=== PATIENT | female | born 1985 | race Caucasian/White ===

== ENCOUNTER → 2017-06-21 | Outpatient (REF) | payer BC ==
[~2017-06-21] MED LIST: COLA100C5 PO; MOTR200T44 PO; PRENTAB55 PO; TYLE167L PO
== END ==
LOC: M LAB REF 17:41
PROVIDERS: ATTEND Advanced Practice Midwife
DX: Z12.4 Encounter for screening for malignant neoplasm of cervix (principal)

== ENCOUNTER → 2017-10-10 | Outpatient (REF) | payer BC ==
[2017-10-10 17:17] LABS: INFLUENZA A AMPLIFICATION NEGATIVE (NEGATIVE); INFLUENZA B AMPLIFICATION NEGATIVE (NEGATIVE); RSV AMPLIFICATION NEGATIVE (NEGATIVE)
== END ==
LOC: M LAB REF 16:36
DX: J11.1 Influenza due to unidentified influenza virus with other respiratory manifestations (principal)
CPT/HCPCS: 87631

== ENCOUNTER → 2018-08-11 | Outpatient (CLI) | payer BC ==
[2018-08-11 12:28] LABS: ALBUMIN 3.9 GM/DL (3.2-5.2); ALBUMIN/GLOBULIN RATIO 1.34 (1.00-1.93); ALKALINE PHOSPHATASE 70 U/L (45-117); ALT/SGPT 18 U/L (12-78); ANION GAP 6 MEQ/L (8-16); AST/SGOT 8 U/L (7-37); BILIRUBIN,TOTAL 0.7 MG/DL (0.2-1.0); BLOOD UREA NITROGEN 12 MG/DL (7-18); CALCIUM LEVEL 8.8 MG/DL (8.5-10.1); CARBON DIOXIDE LEVEL 26 MEQ/L (21-32); CHLORIDE LEVEL 109 MEQ/L (98-107); CHOLESTEROL LEVEL 155 MG/DL (<200); CHOLESTEROL RISK RATIO 3.297 (<5); CREATININE FOR GFR 0.81 MG/DL (0.55-1.30); FREE T4 0.81 NG/DL (0.76-1.46); GLOMERULAR FILTRATION RATE > 60.0 (>60); GLUCOSE, FASTING 92 MG/DL (70-100); HDL CHOLESTEROL 47 MG/DL (>40); LDL CHOLESTEROL 99 MG/DL (<100); NON-HDL-C 108 MG/DL; POTASSIUM SERUM 4.7 MEQ/L (3.5-5.1); SODIUM LEVEL 141 MEQ/L (136-145); TOTAL PROTEIN 6.8 GM/DL (6.4-8.2); TRIGLYCERIDES LEVEL 46 MG/DL (<150)
== END ==
LOC: M WUC 08:44
DX: F41.9 Anxiety disorder, unspecified (principal); Z13.220 Encounter for screening for lipoid disorders
CPT/HCPCS: 84443

== ENCOUNTER → 2018-09-27 | Day surgery (SDC) | payer BC ==
[~2018-09-27] VITALS: Ht 165.1 cm; Wt 84.8 kg
[~2018-09-27] MED LIST changes: +DOXY-350 PO; +LIDOCAINE 2% INJ 100 MG/5 ML SDV (FOR ANES.) As Ordered ONE; +NS 1,000 ML IV ONE; +PROPOFOL 200 MG/20 ML VIAL As Ordered ONE; +SPIR50TA4 PO; +TYLE500T78 PO
--- NOTE | 2018-09-27 09:11 | ROOR ---
Patient Name: Mirella Sykes Procedure Date: 09/27/2018 8:50 AM Date of : 1985 Age: 33 Room: [facility] Gender: Female Note Status: Finalized Procedure: Colonoscopy Indications: Colon cancer screening in patient at increased risk: Family history of 1st-degree relative with colon polyps before age 60 years, Colon cancer screening in patient at increased risk: Family history of colorectal cancer in multiple 2nd degree relatives Providers: Ari Henderson Jr, MD Referring MD: Kady ZENG DO [employer]yuridia Provider: Medicines: Propofol per Anesthesia Complications: No immediate complications. Procedure: Pre-Anesthesia Assessment: - Prior to the procedure, a History and Physical was performed, and patient medications and allergies were reviewed. The patient is competent. The risks and benefits of the procedure and the sedation options and risks were discussed with the patient. All questions were answered and informed consent was obtained. Patient identification and proposed procedure were verified by the physician and the nurse in the pre-procedure area and in the procedure room. Mental Status Examination: alert and oriented. Airway Examination: normal oropharyngeal airway and neck mobility. Respiratory Examination: clear to auscultation. CV Examination: normal. ASA Grade Assessment: I - A normal, healthy patient. After reviewing the risks and benefits, the patient was deemed in satisfactory condition to undergo the procedure. The anesthesia plan was to use moderate sedation / analgesia (conscious sedation). Immediately prior to administration of medications, the patient was re-assessed for adequacy to receive sedatives. The heart rate, respiratory rate, oxygen saturations, blood pressure, adequacy of pulmonary ventilation, and response to care were monitored throughout the procedure. The physical status of the patient was re-assessed after the procedure. The Colonoscope was introduced through the anus and advanced to the cecum, identified by appendiceal orifice and ileocecal valve. The colonoscopy was performed without difficulty. The patient tolerated the procedure well. The quality of the bowel preparation was adequate. Findings: The rectum, recto-sigmoid colon, sigmoid colon, descending colon, transverse colon, ascending colon, cecum, appendiceal orifice and ileocecal valve appeared normal. Impression: - The rectum, recto-sigmoid colon, sigmoid colon, descending colon, transverse colon, ascending colon, cecum, appendiceal orifice and ileocecal valve are normal. - No specimens collected. Recommendation: - Discharge patient to home (ambulatory). - Repeat colonoscopy in 5 years for screening purposes. Ari Henderson MD Ari Henderson Jr, MD 09/27/2018 9:10:40 AM This report has been signed electronically. Number of Addenda: 0 Note Initiated On: 09/27/2018 8:50 AM Estimated Blood Loss: Estimated blood loss: none.
[2018-09-27 09:30] VITALS: BP 125/79
== END | disposition home or self-care (01) ==
LOC: M OPP 08:06
PROVIDERS: ATTEND Surgery
DX: Z83.71 Family history of colonic polyps (principal); Z80.0 Family history of malignant neoplasm of digestive organs; R12 Heartburn; Z79.899 Other long term (current) drug therapy; Z88.1 Allergy status to other antibiotic agents

== ENCOUNTER → 2018-10-01 | Outpatient (CLI) | payer BC ==
[~2018-10-01] MED LIST changes: -LIDOCAINE 2% INJ 100 MG/5 ML SDV (FOR ANES.) As Ordered ONE; -NS 1,000 ML IV ONE; -PROPOFOL 200 MG/20 ML VIAL As Ordered ONE
--- NOTE | 2018-10-01 10:03 | REP ---
Clinical: Pelvic and perineal pain . Technique: Transabdominal pelvic ultrasound followed by transvaginal examination for better evaluation of the endometrium and adnexa with color Doppler evaluation of the ovaries. Findings: Bladder is unremarkable and measures approximately 10.2 x 5.7 x 7.9 cm . Normal anteverted uterus measures 8.6 x 3.6 x 5.3 cm . The endometrial complex measures 5.1 mm thickness. No discrete uterine or endometrial abnormalities are appreciated. Bilateral ovaries are normal in appearance and vascularity without evidence for torsion. Right ovary measures 3.2 x 2.3 x 3.6 cm with complex cystic lesion measuring 1.9 cm maximal diameter ; R I = 0.49 . Left ovary measures 2.5 x 2.0 x 2.6 cm ; R I = 0.55 . No pelvic fluid or adnexal mass lesion . Impression: 1. Normal appearance to the uterus and left ovary. 2. No evidence for ovarian torsion. 3. Complex cystic lesion in the right ovary likely regressing physiologic cyst. Consider reevaluation in 4-6 weeks to evaluate for resolution. Electronically Signed by Carlos Hamilton MD 10/01/2018 09:55 A
== END ==
LOC: M RAD 09:10
PROVIDERS: ATTEND Advanced Practice Midwife
DX: R10.2 Pelvic and perineal pain (principal); N83.201 Unspecified ovarian cyst, right side

== ENCOUNTER → 2019-01-14 | Outpatient (CLI) | payer BC ==
--- NOTE | 2019-01-15 03:58 | REP ---
Clinical: Right ovarian cyst. Comparison: 10/01/2018 . Technique: Transabdominal pelvic ultrasound followed by transvaginal examination for better evaluation of the endometrium and adnexa with color Doppler evaluation of the ovaries. Findings: Bladder is unremarkable and measures 14.8 x 9.8 x 6.3 cm Normal anteverted uterus measures 8.3 x 3.3 x 4.9 cm . The endometrial complex measures 2.7 mm thickness. No discrete uterine or endometrial abnormalities are appreciated. Bilateral ovaries are normal in appearance and vascularity without evidence for torsion. Right ovary measures 3.4 x 2.1 x 2.1 cm ; R I = 0.70 . Left ovary measures 3.7 x 2.0 x 2.5 cm ; R I = 0.65 . No pelvic fluid or adnexal mass lesion. Previous right ovarian cyst resolved. Impression: 1. Normal pelvic ultrasound. Electronically Signed by Carlos Hamilton MD 01/15/2019 03:50 A
== END ==
LOC: M RAD 14:04
PROVIDERS: ATTEND Advanced Practice Midwife
DX: Z87.42 Personal history of other diseases of the female genital tract (principal)

== ENCOUNTER → 2019-08-08 | Outpatient (CLI) | payer BC ==
[2019-08-08 10:27] LABS: BASO % 0.5 % (0.0-1.0); EOS # 0.1 10^3/uL (0.0-0.5); EOS % 1.4 % (0.0-3.0); HEMATOCRIT 44.3 % (36.0-47.0); HEMOGLOBIN 14.7 g/dl (12.0-15.5); LYMPH # 1.6 10^3/uL (1.5-5.0); LYMPH % 19.4 % (24.0-44.0); MEAN CORPUSCULAR HEMOGLOBIN 30.6 pg (27.0-33.0); MEAN CORPUSCULAR HGB CONC 33.2 g/dl (32.0-36.5); MEAN CORPUSCULAR VOLUME 92.3 fl (80.0-96.0); MONO # 0.6 10^3/uL (0.0-0.8); NEUTROPHILS % 71.2 % (36.0-66.0); PLATELET COUNT, AUTOMATED 275 10^3/uL (150-450); WHITE BLOOD COUNT 8.5 10^3/uL (4.0-10.0)
[2019-08-08 11:00] LABS: ALBUMIN 3.6 GM/DL (3.2-5.2); ALT/SGPT 25 U/L (12-78); AMYLASE 28 U/L (25-115); BILIRUBIN,TOTAL 0.8 MG/DL (0.2-1.0); BLOOD UREA NITROGEN 12 MG/DL (7-18); CALCIUM LEVEL 8.9 MG/DL (8.5-10.1); CARBON DIOXIDE LEVEL 28 MEQ/L (21-32); CHLORIDE LEVEL 108 MEQ/L (98-107); CREATININE FOR GFR 0.75 MG/DL (0.55-1.30); GLOMERULAR FILTRATION RATE > 60.0 (>60); GLUCOSE, FASTING 85 MG/DL (70-100); LIPASE 110 U/L (73-393); POTASSIUM SERUM 4.3 MEQ/L (3.5-5.1); SODIUM LEVEL 142 MEQ/L (136-145); TOTAL PROTEIN 6.8 GM/DL (6.4-8.2)
[2019-08-09 14:57] LABS: TISSUE TRANSGLUTAMINASE IgA <2 U/mL (0-3); TISSUE TRANSGLUTAMINASE IgG <2 U/mL (0-5); UNITSIGA FOR GLIADIN IGA 4 units (0-19); UNITSIGG FOR GLIADIN IGG 3 units (0-19)
== END ==
LOC: M WUC 08:26
PROVIDERS: ATTEND Family Medicine
DX: R10.11 Right upper quadrant pain (principal)

== ENCOUNTER → 2019-10-11 | Outpatient (CLI) | payer BC ==
--- NOTE | 2019-10-11 10:13 | REP ---
Hepatobiliary scan and gallbladder ejection fraction: History: Right upper quadrant pain pressure and tenderness. Technique: 6.6 mCi of technetium-99m mebrofenin was injected and sequential anterior images are acquired. 65 minutes after the mebrofenin injection, the patient consumed 8 ounces Ensure and an additional 60 minutes of imaging was acquired. Regions of interest are plotted around the gallbladder. Findings: The initial hepatocellular parenchymal uptake phase is normal and homogeneous. Intra- and extra-hepatic bile ducts are labeled by the 10 -minute image. The gallbladder is first labeled on the 10 -minute image. There is normal washout from the liver parenchyma into the gallbladder and small intestine on subsequent images. The gallbladder ejection fraction is 55 %. Values greater than 35 % are considered normal with this technique. Impression: Normal hepatobiliary scan and normal gallbladder ejection fraction. Electronically Signed by Hussain Jarvis MD 10/11/2019 10:05 A
== END ==
LOC: M RAD 07:33
PROVIDERS: ATTEND Family Medicine
DX: R10.11 Right upper quadrant pain (principal)
CPT/HCPCS: 78227; A9537; J2805

== ENCOUNTER → 2019-10-24 | Outpatient (CLI) | payer BC ==
[~2019-10-24] MED LIST changes: +GASTROGRAFIN SOLUTION 30ML (Q9963) As Ordered ONE; +ISOVUE-370 76% 100ML VIAL (Q9967) As Ordered ONE
--- NOTE | 2019-10-24 15:11 | REP ---
Clinical: Right upper quadrant pain. Technique: Axial contrast enhanced images from the lung bases to the pubic symphysis using oral (per protocol) and 100 ml Isovue 370 intravenous contrast material with coronal and sagittal re-formations. Findings: Lung bases are clear. Visualized heart and pericardium normal. Liver, spleen, pancreas, gallbladder, bilateral adrenal glands and kidneys are normal. The enteric system is without obstruction or acute inflammatory process. Normal terminal ileum and appendix are identified in the right lower quadrant. Pelvis demonstrates normal bladder and age-appropriate uterus/adnexa. No pelvic fluid or ascites. No free air. No adenopathy. Abdominal aorta without aneurysm or dissection. Musculoskeletal structures are intact. Impression: 1. No acute abdominopelvic pathology appreciated. 2. No ascites, adenopathy, or focal inflammatory stranding. No free air. Electronically Signed by Carlos Hamilton MD 10/24/2019 03:02 P
== END ==
LOC: M RAD 12:53
PROVIDERS: ATTEND Family Medicine
DX: R10.11 Right upper quadrant pain (principal); K82.4 Cholesterolosis of gallbladder
CPT/HCPCS: 74177; Q9963; Q9967

== ENCOUNTER → 2020-01-15 | Outpatient (CLI) | payer BC ==
[~2020-01-15] MED LIST changes: -GASTROGRAFIN SOLUTION 30ML (Q9963) As Ordered ONE; -ISOVUE-370 76% 100ML VIAL (Q9967) As Ordered ONE
[2020-01-15 10:40] LABS: BASO % 0.5 % (0.0-1.0); EOS # 0.1 10^3/uL (0.0-0.5); EOS % 1.4 % (0.0-3.0); HEMATOCRIT 43.7 % (36.0-47.0); HEMOGLOBIN 14.7 g/dl (12.0-15.5); LYMPH # 1.8 10^3/uL (1.5-5.0); LYMPH % 27.5 % (24.0-44.0); MEAN CORPUSCULAR HEMOGLOBIN 30.5 pg (27.0-33.0); MEAN CORPUSCULAR HGB CONC 33.6 g/dl (32.0-36.5); MEAN CORPUSCULAR VOLUME 90.7 fl (80.0-96.0); MONO # 0.5 10^3/uL (0.0-0.8); MONO % 8.3 % (0.0-5.0); NEUTROPHILS % 62.1 % (36.0-66.0); PLATELET COUNT, AUTOMATED 305 10^3/uL (150-450); RED BLOOD COUNT 4.82 10^6/uL (4.00-5.40); WHITE BLOOD COUNT 6.4 10^3/uL (4.0-10.0)
[2020-01-15 11:13] LABS: ALBUMIN 4.1 GM/DL (3.2-5.2); ALT/SGPT 25 U/L (12-78); BILIRUBIN,DIRECT 0.2 MG/DL (0.0-0.2); BILIRUBIN,TOTAL 0.8 MG/DL (0.2-1.0); TOTAL PROTEIN 7.3 GM/DL (6.4-8.2)
[2020-01-15 11:27] LABS: H PYLORI QUALITATIVE IgG NEGATIVE (NEGATIVE)
[2020-01-18 00:07] LABS: IGASUB3 19.3 mg/dL (13.4-97.9); IgA SERUM (part of Subclasses) 182 mg/dL (87-352); TISSUE TRANSGLUTAMINASE IgA <2 U/mL (0-3)
[2020-01-24 08:06] LABS: FATS NEUTRAL Normal (.); FATS TOTAL Normal (.); H PYLORI STOOL ANTIGEN Negative (Negative); PANCREATIC ELASTASE STOOL >500 (>200)
== END ==
LOC: M LAB 09:48
PROVIDERS: ATTEND Internal Medicine Gastroenterology
DX: R10.11 Right upper quadrant pain (principal)

== ENCOUNTER → 2020-02-15 | Outpatient (CLI) | payer BC ==
[2020-02-15 18:10] LABS: CHOLESTEROL RISK RATIO 3.65 (<5)
== END ==
LOC: M WUC 09:57
PROVIDERS: ATTEND Nurse Practitioner Family
DX: Z51.81 Encounter for therapeutic drug level monitoring (principal); Z79.899 Other long term (current) drug therapy; L70.0 Acne vulgaris

== ENCOUNTER → 2020-03-22 | Outpatient (CLI) | payer BC ==
[~2020-03-22] MED LIST changes: +FAMO20TA PO; +MULTCAP PO; +[UNRECOGNIZED DRUG - OTHER]
[2020-03-22 17:36] LABS: BASO % 0.6 % (0.0-1.0); EOS # 0.1 10^3/uL (0.0-0.5); HEMATOCRIT 47.2 % (36.0-47.0); HEMOGLOBIN 15.4 g/dl (12.0-15.5); LYMPH # 1.8 10^3/uL (1.5-5.0); LYMPH % 26.9 % (24.0-44.0); MEAN CORPUSCULAR HEMOGLOBIN 30.6 pg (27.0-33.0); MEAN CORPUSCULAR HGB CONC 32.6 g/dl (32.0-36.5); MEAN CORPUSCULAR VOLUME 93.7 fl (80.0-96.0); MONO # 0.6 10^3/uL (0.0-0.8); MONO % 8.2 % (0.0-5.0); NEUTROPHILS # 4.2 10^3/uL (1.5-8.5); PLATELET COUNT, AUTOMATED 283 10^3/uL (150-450); RED BLOOD COUNT 5.04 10^6/uL (4.00-5.40); WHITE BLOOD COUNT 6.8 10^3/uL (4.0-10.0)
[2020-03-22 17:55] LABS: CHOLESTEROL LEVEL 173 MG/DL (<200); CHOLESTEROL RISK RATIO 4.325 (<5); HCG, SERUM QUANTITATIVE < 1.0 MIU/ML; HDL CHOLESTEROL 40 MG/DL (>40); LDL CHOLESTEROL 111 MG/DL (<100); NON-HDL-C 133 MG/DL; TRIGLYCERIDES LEVEL 109 MG/DL (<150)
== END ==
LOC: M WUC 08:31
PROVIDERS: ATTEND Nurse Practitioner Family
DX: Z51.81 Encounter for therapeutic drug level monitoring (principal); Z79.899 Other long term (current) drug therapy

== ENCOUNTER → 2020-04-21 | Outpatient (CLI) | payer BC ==
[2020-06-17 13:59] LABS: ALT/SGPT 36 U/L (12-78); CHOLESTEROL LEVEL 168 MG/DL (< 200); HCG, SERUM QUANTITATIVE < 1.0 MIU/ML; TRIGLYCERIDES LEVEL 88 MG/DL (<150)
== END ==
LOC: M LAB 07:36
PROVIDERS: ATTEND Nurse Practitioner Family
DX: L70.0 Acne vulgaris (principal)

== ENCOUNTER → 2020-05-24 | Outpatient (CLI) | payer BC ==
[2020-05-24 16:03] LABS: ALT/SGPT 14 U/L (12-78); CHOLESTEROL LEVEL 146 MG/DL (< 200); HCG, SERUM QUANTITATIVE < 1.0 MIU/ML; TRIGLYCERIDES LEVEL 107 MG/DL (<150)
== END ==
LOC: M WUC 09:13
PROVIDERS: ATTEND Nurse Practitioner Family
DX: L70.0 Acne vulgaris (principal)

== ENCOUNTER → 2020-06-21 | Outpatient (CLI) | payer BC ==
[~2020-06-21] MED LIST changes: -FAMO20TA PO; -MULTCAP PO; -[UNRECOGNIZED DRUG - OTHER]
[2020-06-21 17:32] LABS: ALBUMIN 3.9 GM/DL (3.2-5.2); ALT/SGPT 29 U/L (12-78); BILIRUBIN,DIRECT < 0.1 MG/DL (0.0-0.2); BILIRUBIN,TOTAL 0.4 MG/DL (0.2-1.0); CHOLESTEROL LEVEL 183 MG/DL (<200); CHOLESTEROL RISK RATIO 4.945 (<5); HCG, SERUM QUANTITATIVE < 1.0 MIU/ML; HDL CHOLESTEROL 37 MG/DL (>40); LDL CHOLESTEROL 96 MG/DL (<100); NON-HDL-C 146 MG/DL; TOTAL PROTEIN 7.1 GM/DL (6.4-8.2); TRIGLYCERIDES LEVEL 249 MG/DL (<150)
== END ==
LOC: M WUC 14:37
PROVIDERS: ATTEND Nurse Practitioner Family
DX: L70.0 Acne vulgaris (principal)

== ENCOUNTER → 2020-06-22 | Outpatient (CLI) | payer BC ==
--- NOTE | 2020-06-24 16:54 | REP ---
INDICATION: ABD PAIN, R/O LIVER/BILIARY/EVAL FOR ARCUATE LIG S COMPARISON: None. TECHNIQUE: Real time montiel scale ultrasound examination using curved array transducer. FINDINGS: Liver is normal in contour, size, and echogenicity without focal hepatic lesions identified. Pancreas is incompletely evaluated due to interposed bowel gas. The gallbladder is normal and without gallstones, wall thickening, or pericholecystic fluid. No biliary ductal dilatation is appreciated and the common bile duct measures 2.7 mm diameter. Right kidney is normal in reniform shape without hydronephrosis and measures 11.1 x 5.2 x 3.9 cm with normal extrarenal pelvis noted. No ascites in the visualized right upper quadrant. Imaging of the celiac axis on inspiration and expiration in conjunction with Doppler evaluation demonstrates significant changes in angulation and velocities at the proximal portion of the celiac axis. Aortic velocity: 155 centimeters/second Celiac axis (inspiration): 168 centimeters/second with 138 degree angulation Celiac axis (expiration): 442 centimeters/second with 65 degree angulation IMPRESSION: 1. 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 CT angiography of the abdomen may be obtained if necessary. 2. Otherwise normal appearance to the right upper quadrant. <Electronically signed by Carlos Hamilton > 06/24/20 [id number]
== END ==
LOC: M RAD 08:29
PROVIDERS: ATTEND Internal Medicine Gastroenterology
DX: R10.9 Unspecified abdominal pain (principal)

== ENCOUNTER → 2020-07-19 | Outpatient (CLI) | payer BC ==
[~2020-07-19] MED LIST changes: +FAMO20TA PO; +MULTCAP PO; +[UNRECOGNIZED DRUG - OTHER]
[2020-07-19 17:36] LABS: ALBUMIN 3.9 GM/DL (3.2-5.2); ALT/SGPT 16 U/L (12-78); BILIRUBIN,DIRECT 0.2 MG/DL (0.0-0.2); BILIRUBIN,TOTAL 0.4 MG/DL (0.2-1.0); CHOLESTEROL LEVEL 159 MG/DL (<200); CHOLESTEROL RISK RATIO 4.184 (<5); HCG, SERUM QUANTITATIVE < 1.0 MIU/ML; HDL CHOLESTEROL 38 MG/DL (>40); LDL CHOLESTEROL 102 MG/DL (<100); NON-HDL-C 121 MG/DL; TOTAL PROTEIN 6.8 GM/DL (6.4-8.2); TRIGLYCERIDES LEVEL 94 MG/DL (<150)
== END ==
LOC: M WUC 08:37
PROVIDERS: ATTEND Nurse Practitioner Family
DX: L70.0 Acne vulgaris (principal)

== ENCOUNTER → 2020-07-24 | Day surgery (SDC) | payer BC ==
[~2020-07-24] VITALS: Ht 165.1 cm; Wt 82.1 kg
[~2020-07-24] MED LIST changes: +NS 1,000 ML IV ONE; +propofoL 200 MG/20 ML VIAL As Ordered ONE
[2020-07-24 13:15] VITALS: BP 137/82
== END | disposition home or self-care (01) ==
LOC: M OPP 12:43
PROVIDERS: ATTEND Internal Medicine Gastroenterology
DX: K30 Functional dyspepsia (principal); Z20.828 Contact with and (suspected) exposure to other viral communicable diseases; Z53.8 Procedure and treatment not carried out for other reasons

== ENCOUNTER 2020-08-07 15:16 | Day surgery (SDC) | payer BC ==
[~2020-08-07] VITALS: Ht 165.1 cm; Wt 83.0 kg
[~2020-08-07 15:16] MED LIST changes: -propofoL 200 MG/20 ML VIAL As Ordered ONE
[2020-08-07] MEDS ORDERED: fentaNYL 100 MCG/2 ML INJECTION (J3010) As Ordered ONE (17:05)
[2020-08-07] MEDS ORDERED: LIDOCAINE 2% 100MG/5ML SDV (FOR ANES.) As Ordered ONE (17:05)
[2020-08-07] MEDS ORDERED: propofoL 200 MG/20 ML VIAL As Ordered ONE (17:05)
--- NOTE | 2020-08-07 17:21 | ROOR ---
Patient Name: Mirella Sykes Procedure Date: 08/07/2020 4:59 PM Date of : 1985 Age: 35 Room: [facility] Gender: Female Note Status: Finalized Procedure: Upper GI endoscopy Indications: Epigastric abdominal pain, Dyspepsia Providers: Carlito Doshi MD Referring MD: Kady ZENG DO Requesting Provider: Medicines: Monitored Anesthesia Care Complications: No immediate complications. Procedure: Pre-Anesthesia Assessment: - Prior to the procedure, a History and Physical was performed, and patient medications and allergies were reviewed. The patient is competent. The risks and benefits of the procedure and the sedation options and risks were discussed with the patient. All questions were answered and informed consent was obtained. Patient identification and proposed procedure were verified by the physician, the nurse and the anesthesiologist in the procedure room. Mental Status Examination: alert and oriented. Airway Examination: normal oropharyngeal airway and neck mobility. Respiratory Examination: clear to auscultation. CV Examination: normal. Prophylactic Antibiotics: The patient does not require prophylactic antibiotics. Prior Anticoagulants: The patient has taken no previous anticoagulant or antiplatelet agents. ASA Grade Assessment: I - A normal, healthy patient. After reviewing the risks and benefits, the patient was deemed in satisfactory condition to undergo the procedure. The anesthesia plan was to use monitored anesthesia care (MAC). Immediately prior to administration of medications, the patient was re-assessed for adequacy to receive sedatives. The heart rate, respiratory rate, oxygen saturations, blood pressure, adequacy of pulmonary ventilation, and response to care were monitored throughout the procedure. The physical status of the patient was re-assessed after the procedure. The Endoscope was introduced through the mouth, and advanced to the second part of duodenum. The upper GI endoscopy was accomplished without difficulty. The patient tolerated the procedure well. Findings: The examined esophagus was normal. Scattered mild inflammation characterized by erythema and granularity was found in the gastric antrum. Biopsies were taken with a cold forceps for Helicobacter pylori testing. Verification of patient identification for the specimen was done by the physician and nurse using the patient's name, date and medical record number. Estimated blood loss was minimal. No gross lesions were noted in the duodenal bulb, in the second portion of the duodenum and in the third portion of the duodenum. Biopsies for histology were taken with a cold forceps for evaluation of celiac disease. Impression: - Normal esophagus. - Gastritis. Biopsied. - No gross lesions in the duodenal bulb, in the second portion of the duodenum and in the third portion of the duodenum. Biopsied. Recommendation: - Patient has a contact number available for emergencies. The signs and symptoms of potential delayed complications were discussed with the patient. Return to normal activities tomorrow. Written discharge instructions were provided to the patient. - High fiber diet. - Continue present medications. - Await pathology results. - Follow an antireflux regimen. - Telephone GI clinic for pathology results in 2 weeks. - Return to primary care physician. Procedure Code(s): --- Professional --- 59839, Esophagogastroduodenoscopy, flexible, transoral; with biopsy, single or multiple Diagnosis Code(s): --- Professional --- K29.70, Gastritis, unspecified, without bleeding R10.13, Epigastric pain CPT copyright 2019 [employer]. All rights reserved. The codes documented in this report are preliminary and upon physiatrist review may be revised to meet current compliance requirements. Carlito Doshi MD Carlito Doshi MD 08/07/2020 5:21:25 PM Electronically signed by Carlito Doshi MD Number of Addenda: 0 Note Initiated On: 08/07/2020 4:59 PM Estimated Blood Loss: Estimated blood loss was minimal.
[2020-08-07 17:40] VITALS: BP 151/86
== END 2020-08-07 17:44 | disposition home or self-care (01) ==
LOC: M OPP 15:16
PROVIDERS: ATTEND Internal Medicine Gastroenterology
DX: K29.70 Gastritis, unspecified, without bleeding (principal); K30 Functional dyspepsia; Z88.1 Allergy status to other antibiotic agents
CPT/HCPCS: 43239; 88305; J3010

== ENCOUNTER → 2021-01-25 | Outpatient (CLI) | payer BC ==
[~2021-01-25] MED LIST changes: -NS 1,000 ML IV ONE
--- NOTE | 2021-01-25 17:46 | REP ---
INDICATION: PAIN IN RIGHT FOOT COMPARISON: None. TECHNIQUE: AP, lateral, bilateral oblique views right foot. FINDINGS: The osseous structures and joint spaces are intact and normal. There is no evidence for acute fracture or dislocation. Surrounding soft tissues are unremarkable. No subcutaneous emphysema or radiodense foreign body. IMPRESSION: Age-appropriate right foot examination. No acute fracture or dislocation. <Electronically signed by Carlos Hamilton > 01/25/21 [id number]
== END ==
LOC: M LAB 17:16
PROVIDERS: ATTEND Physician Assistant
DX: M79.671 Pain in right foot (principal)

== ENCOUNTER → 2021-10-09 | Outpatient (REF) | LOC: M LABSMTC 09:08 | PROVIDERS: ATTEND Family Medicine | DX: Z20.822 Contact with and (suspected) exposure to COVID-19 (principal) ==

== ENCOUNTER → 2021-11-02 | Outpatient (REF) | payer BC | LOC: M PLALAB 16:32 | PROVIDERS: ATTEND Advanced Practice Midwife | DX: Z12.4 Encounter for screening for malignant neoplasm of cervix (principal) | CPT/HCPCS: 87624; G0123 ==

== ENCOUNTER → 2022-06-09 | Outpatient (CLI) | payer BC ==
[2022-06-09 10:04] LABS: BASO # 0.1 10^3/uL (0.0-0.2); BASO % 0.6 % (0.0-1.0); EOS # 0.3 10^3/uL (0.0-0.5); EOS % 3.5 % (0.0-3.0); HEMATOCRIT 46.1 % (36.0-47.0); HEMOGLOBIN 15.3 g/dl (12.0-15.5); LYMPH # 1.8 10^3/uL (1.5-5.0); MEAN CORPUSCULAR HEMOGLOBIN 30.6 pg (27.0-33.0); MEAN CORPUSCULAR HGB CONC 33.2 g/dl (32.0-36.5); MEAN CORPUSCULAR VOLUME 92.2 fl (80.0-96.0); MONO # 0.8 10^3/uL (0.0-0.8); MONO % 10.6 % (2.0-8.0); NEUTROPHILS % 62.9 % (36.0-66.0); PLATELET COUNT, AUTOMATED 286 10^3/uL (150-450)
[2022-06-09 11:04] LABS: ALBUMIN 3.9 GM/DL (3.2-5.2); ALT/SGPT 22 U/L (12-78); BILIRUBIN,TOTAL 0.8 MG/DL (0.2-1.0); BLOOD UREA NITROGEN 13 MG/DL (7-18); CARBON DIOXIDE LEVEL 26 MEQ/L (21-32); CHLORIDE LEVEL 107 MEQ/L (98-107); CHOLESTEROL LEVEL 159 MG/DL (<200); CHOLESTEROL RISK RATIO 3.382 (<5); CREATININE FOR GFR 0.85 MG/DL (0.55-1.30); FREE T4 0.85 NG/DL (0.76-1.46); GLOMERULAR FILTRATION RATE > 60.0 (>60); GLUCOSE, FASTING 92 MG/DL (70-100); HDL CHOLESTEROL 47 MG/DL (>40); LDL CHOLESTEROL 93 MG/DL (<100); NON-HDL-C 112 MG/DL; POTASSIUM SERUM 4.6 MEQ/L (3.5-5.1); SODIUM LEVEL 138 MEQ/L (136-145); TOTAL PROTEIN 7.1 GM/DL (6.4-8.2); TRIGLYCERIDES LEVEL 95 MG/DL (<150)
== END ==
LOC: M WUC 08:14
PROVIDERS: ATTEND Nurse Practitioner Adult Health
DX: Z13.29 Encounter for screening for other suspected endocrine disorder (principal); Z13.220 Encounter for screening for lipoid disorders; Z13.228 Encounter for screening for other metabolic disorders

== ENCOUNTER → 2023-11-10 | Outpatient (REF) | payer BC ==
[~2023-11-10] MED LIST changes: -DOXY-350 PO; +DOXY-444 PO
== END ==
LOC: M SFHCWAGY 14:27
PROVIDERS: ATTEND Advanced Practice Midwife
DX: Z12.4 Encounter for screening for malignant neoplasm of cervix (principal)
CPT/HCPCS: 87624; G0123

== ENCOUNTER → 2023-11-21 | Outpatient (CLI) | payer BC | LOC: M WHC 16:22 | PROVIDERS: ATTEND Advanced Practice Midwife | DX: Z12.31 Encounter for screening mammogram for malignant neoplasm of breast (principal) ==

== ENCOUNTER → 2023-11-28 | Outpatient (REF) | LOC: M EMP 09:11 | PROVIDERS: ATTEND Family Medicine | DX: Z20.822 Contact with and (suspected) exposure to COVID-19 (principal) ==

== ENCOUNTER 2024-02-29 08:33 | Day surgery (SDC) | payer BC ==
[~2024-02-29] VITALS: Ht 165.1 cm; Wt 91.4 kg
[~2024-02-29 08:33] MED LIST changes: +D3 M1CAP2 PO; +DOXY-440 PO; -DOXY-444 PO; +ISOT40CA5 PO; +THERTAB52 PO
[2024-02-29] MEDS: NS 1,000 ML IV ONE (08:47)
[2024-02-29] MEDS ORDERED: fentaNYL 100 MCG/2 ML INJECTION As Ordered ONE (08:52)
[2024-02-29] MEDS ORDERED: LIDOCAINE 2% 100MG/5ML SDV (FOR ANES.) As Ordered ONE (08:53)
[2024-02-29] MEDS ORDERED: propofoL 200 MG/20 ML VIAL As Ordered ONE (09:53)
[2024-02-29 10:20] VITALS: BP 129/86; TEMP 97; O2SAT 100
== END 2024-02-29 10:27 | disposition home or self-care (01) ==
LOC: M OPP 08:33
PROVIDERS: ATTEND Surgery
DX: Z12.11 Encounter for screening for malignant neoplasm of colon (principal); Z83.719 Family history of colon polyps, unspecified; Z80.0 Family history of malignant neoplasm of digestive organs; K44.9 Diaphragmatic hernia without obstruction or gangrene; K30 Functional dyspepsia; Z88.1 Allergy status to other antibiotic agents
CPT/HCPCS: 43235; 45378; J3010

== ENCOUNTER → 2024-11-25 | Outpatient (CLI) | payer BC | LOC: M WHC 10:26 | PROVIDERS: ATTEND Nurse Practitioner Adult Health | DX: Z12.31 Encounter for screening mammogram for malignant neoplasm of breast (principal); R92.323 Mammographic fibroglandular density, bilateral breasts ==